=== PATIENT | female | born 2000 | race Caucasian/White ===

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

== ENCOUNTER 2022-09-27 22:05 | Emergency (ER) | payer MEDICAID, SELFPAY ==
[2022-09-27 22:19] VITALS: BP 125/86; PULSE 84; RESP 16; TEMP 36.8; O2SAT 98; BMI 17.2
[2022-09-28] MEDS: dexamethasone 4 mg Tablet 10 MG PO (00:28)
[2022-09-28] MEDS: cephALEXin 500 mg Capsule PO (00:28)
[2022-09-28] MEDS: oxyCODONE-APAP 5-325 mg Tablet 2 TAB PO (00:29)
--- NOTE | 2022-09-28 05:02 | ED_ITS ---
HPI - Dental/Oral General: Chief complaint: Dental/Oral Stated complaint: jaw/tooth pain Time Seen by Provider: 09/28/22 00:12 History of Present Illness: 22-year-old female complaining of right lower jaw and tooth pain. She notes that she has a tooth that is chronically bad on that side. She has had an increase in pain in the tooth with throbbing pain radiating into her face. no fever. no vomiting. she has not seen a dentist. Associated symptoms: Denies fever(s) Review of Systems Const: Denies: fever(s) Eyes: Denies: change in vision ENMT: Reports: dental pain Card: Denies: chest pain Resp: Denies: dyspnea GI: Reports: nausea; Denies: vomiting PFSH ED PFSH: Medical History Anxiety Will refill wellbutrin and refer to [facility]. Chronic sinusitis Chronic tonsillitis Deviated septum Menorrhagia with irregular cycle Nasal turbinate hypertrophy Surgical History H/O oral surgery (~2008) Family History Father Diabetes Family/Other Patient denies medical problems breast/ovarian/uterine/colon/prostate cancer,HTN,thyroid,stroke Social History Smoking and tobacco status: current every day smoker cigarettes Packs smoked per day: 0.5 Second hand smoke exposure: Yes Alcohol intake: never Substance/Drug Use: current Substance/Drug use frequency: daily Current gender identity: Female Female Reproductive History: Date of last menstrual period: 09/04/22 Physical Exam Const: COMMON NORMALS: no acute distress GENERAL APPEARANCE: cooperative; not ill appearing and not frail appearing HENMT: COMMON NORMALS: normocephalic, atraumatic and Normal external nose present HEAD & SCALP: normocephalic and atraumatic FACE & SINUS: normal facial exam and face symmetric NOSE: Normal external nose present TEETH & GINGIVA: Yes abnormal tooth and associated gingiva, Yes gingiva abnormal and Yes poor dentition THROAT: posterior oropharynx normal Eye: COMMON NORMALS: Equal, round and reactive pupils present and EOMs intact bilaterally PUPIL: Yes Equal, round and reactive pupils present Neck/C-Spine: GENERAL: Yes trachea midline Chest: CHEST: Yes Symmetrical chest wall rise Resp: COMMON NORMALS: normal respiratory effort, No retractions, No use of accessory muscles and clear to auscultation bilaterally AUSCULTATION: clear to auscultation bilaterally Cardio: COMMON NORMALS: regular rate and regular rhythm RATE: regular rate RHYTHM: regular rhythm GI: COMMON NORMALS: Normal to inspection, nondistended, normoactive bowel sounds present Extremity: COMMON NORMALS: no pedal edema Neuro: ANY COMA SCALE: document [facility] findings [place] coma scale eye opening: Spontaneous Any coma scale verbal response: Orientated Any coma scale motor response: Obey commands [place] coma scale total score: 15 SENSORY EXAM: Yes extremities (intact) Psych: COMMON NORMALS: speech normal SPEECH: Yes normal speech Skin: COMMON NORMALS: no rashes or lesions noted GENERAL SKIN EXAM: no rashes or lesions noted Course Vital Signs: Vital signs: Vital Signs Temperature 98.2 F 09/27/22 22:19 Pulse Rate 84 09/27/22 22:19 Respiratory Rate 16 09/27/22 22:19 Blood Pressure 125/86 09/27/22 22:19 Pulse Oximetry 98 09/27/22 22:19 Oxygen Delivery Me thod Room Air 09/27/22 22:19 MDM - Dental/Oral Medical Decision Making We will treat as a dental abscess with antibiotics. 1 dose of dexamethasone for pain and swelling. Close dental follow-up. Discharge Plan Discharge Patient Disposition: Home Clinical Impression: Dental abscess Condition: Stable Prescriptions: New ketorolac 10 mg tablet 10 mg PO TID PRN (Reason: pain) Qty: 10 0RF cephalexin 500 mg capsule 500 mg PO Q6H 10 Days Qty: 40 0RF No Action Kyleena 17.5 mcg/24 hrs (5 yrs) 19.5 mg intrauterine device 1 device INTRAUTERI ONCE Qty: 1 0RF bupropion HCl [Wellbutrin XL] 150 mg tablet extended release 24 hr 150 mg PO QAM Qty: 30 3RF Peridex 0.12 % mouthwash 15 ml BUCCAL BID Qty: 118 0RF Rx Instructions: Swish for 60 seconds then spit Discharge Orders: Discharge ED (Routine); Ordered 09/28/22 Ordered By: Nael Durham Patient Instructions: Dental Abscess (ED), Opioid Safety, Pain Management Activity Restrictions/Additional Instructions: Follow-up with a dentist as we discussed Coding Level of Care Code ED Operating Room Surgical Technologist for Ramirez Ovalle
== END 2022-09-28 00:39 | disposition home or self-care (01) ==
PROVIDERS: Emergency Provider Emergency Medicine
DX: K04.7 Periapical abscess without sinus (principal); F17.210 Nicotine dependence, cigarettes, uncomplicated
CPT/HCPCS: 99283; J8540